=== PATIENT | female | born 1995 | race African-American/Black ===

== ENCOUNTER 2017-08-31 11:01 | Emergency (ER) | payer MEDICAID, OTHER ==
[2017-08-31 12:06] VITALS: BP 115/62; PULSE 96; RESP 18; TEMP 99.3; O2SAT 10; O2SAT 100
--- NOTE | 2017-08-31 13:01 | PD ---
HPI Chief Complaint: Cold / Flu Symptoms Time Seen by Provider: 12:54 Travel History International Travel<30 days: No Contact w/Intl Traveler<30days: No Traveled to known affect area: No History of Present Illness HPI 21-year-old female presents to the ED for evaluation at 2 week history of itchy , watery eyes, sinus congestion, clear rhinorrhea and scratchy throat. She denies ear pain, fevers, chills, cough, shortness of breath. She denies history of seasonal allergies. No treatment attempted at home. PFSH Past Medical History ?: Unknown LMP: STOPPED DEPO IN JUL Social History Alcohol Use: No Tobacco Use: No Substance Use: No Allergies-Medications (Allergen,Severity, Reaction): Coded Allergies: Penicillins (Verified Allergy, Unknown, 08/31/17) Reported Meds & Prescriptions Reported Meds & Active Scripts Active Fluticasone Nasal Roby 50 Mcg/Act Naspr 100 Mcg EACH NARE BID 30 Days 50 mcg/spray [place]-D 24 Hour Allergy (Fexofenadine-Pseudoephedrine ER 24 HR) 180-240 [place] 1 Tab PO DAILY Review of Systems Except as stated in HPI: all other systems reviewed are Neg Physical Exam Narrative GENERAL: Well-nourished, well-developed AA female in NAD. SKIN: Warm and dry. HEAD: Normocephalic. Atraumatic. EYES: No scleral icterus. No injection or drainage. PERRLA. EOMI. ENT: Pearly weir tympanic membranes bilaterally. Nasal mucosa is moist, boggy, bluish. Oropharynx without edema or exudate. Mild posterior erythema and cobblestoning. Airway patent. Uvula midline. NECK: Supple, trachea midline. No JVD or lymphadenopathy. CARDIOVASCULAR: Regular rate and rhythm without murmurs, gallops, or rubs. RESPIRATORY: Breath sounds clear and equal bilaterally. No accessory muscle use. GASTROINTESTINAL: Abdomen soft, non-tender, nondistended. + Bowel sounds MUSCULOSKELETAL: No cyanosis, or edema. BACK: Nontender without obvious deformity. No CVA tenderness. Data Data Last Documented VS Vital Signs Date Time Temp Pulse Resp B/P (MAP) Pulse Ox O2 Delivery O2 Flow Rate FiO2 08/31/17 12:06 99.3 96 18 115/62 (79) 100 Orders Orders Ed Discharge Order (08/31/17 13:02) [facility] Medical Decision Making Medical Screen Exam Complete: Yes Emergency Medical Condition: Yes Differential Diagnosis viral syndrome versus allergic rhinitis versus pharyngitis versus other Narrative Course 21-year-old female presents to the ED for evaluation at 2 week history of itchy , watery eyes, sinus congestion, clear rhinorrhea and scratchy throat. She denies ear pain, fevers, chills, cough, shortness of breath. She denies history of seasonal allergies. Patient afebrile on presentation. Physical exam reveals boggy, bluish nasal mucosa and mild posterior erythema with cobblestoning. This is allergic rhinitis. Patient's prescribed [place]-D and fluticasone daily 30 days. She is instructed to use an OTC allergy eyedrop if needed, follow with the primary care provider. She is stable and discharged home. Diagnosis Primary Impression: Allergic rhinitis Qualified Codes: J30.9 - Allergic rhinitis, unspecified Referrals: Primary Care Physician Additional Instructions: Rest, hydrate. Avoid known allergens. Take Claritin-D daily. Fluticasone nasal spray 2 pumps in each nostril daily. You may also use an OTC allergy eyedrop for eye symptoms. Follow with primary care provider. Return to the ED for any urgent or emergent medical condition. Med/Other Pt SpecificInfo: Prescription(s) given Scripts Fluticasone Nasal Roby (Fluticasone Nasal Roby) 50 Mcg/Act Naspr 100 MCG EACH NARE BID for Allergy Management for 30 Days, #1 BOTTLE 0 Refills 50 mcg/spray Prov: Marleny Flores MD 08/31/17 Fexofenadine-Pseudoephedrine ER 24 HR ([place]-D 24 Hour Allergy) 180-240 [place] 1 TAB PO DAILY for Allergy Management, #30 TAB 0 Refills Prov: Marleny Flores MD 08/31/17 Disposition: 01 DISCHARGE HOME Condition: Stable Lindsay Jenkins Aug 31, 2017 13:01
[2017-08-31] MEDS ORDERED: FEXO1TAB97 PO (13:02)
[2017-08-31] MEDS ORDERED: FLUT50SP EACH NARE (13:02)
== END 2017-08-31 13:10 | disposition home or self-care (01) ==
LOC: NED 11:01 → NEPK 13:10
DX: J30.9 Allergic rhinitis, unspecified (principal)
CPT/HCPCS: 99283